=== PATIENT | male | born 2000 | race Caucasian/White ===

== ENCOUNTER 2020-09-20 23:06 | Inpatient (IN) ==
[2020-09-20 23:47] LABS: Bilirubin,Urine Negative (Negative); Blood,Urine Negative (Negative); Clarity,Urine Clear (Clear); Color,Urine Yellow (Yellow); Glucose,Urine (UA) Normal (Normal); Ketones,Urine Negative (Negative); Leukocyte Esterase,Urine Negative (Negative); Nitrite,Urine Negative (Negative); PH,Urine 6.5 pH Units (5.0-8.0); Protein,Urine Trace mg/dL (Neg-Trace); Specific Gravity,Urine > 1.030 (1.010-1.025); Urobilinogen,Urine Normal (Normal)
[2020-09-20 23:47] LABS: Basophils % 0.5 %; Eosinophils # 0.1 K/mcL (0.0-0.6); Eosinophils % 0.7 %; Hematocrit 43.8 % (37.5-50.1); Hemoglobin 14.4 g/dL (12.9-16.9); Immature Granulocytes % 0.7 % (0-4); Lymphocytes # 2.3 K/mcL (0.6-4.6); Lymphocytes % 25.9 %; Mean Corpuscular HGB Conc 32.9 g/dL (31.6-35.5); Mean Corpuscular Hemoglobin 27.1 pg (28.0-33.3); Mean Corpuscular Volume 82.3 fL (83.0-100.0); Mean Platelet Volume 10.4 fL (9.4-12.4); Monocytes # 0.8 K/mcL (0.0-1.3); Monocytes % 9.1 %; Neutrophils # 5.6 K/mcL (1.6-8.9); Platelet Count 213 K/mcL (140-400); Red Blood Count 5.32 M/mcL (4.19-5.50); Red Cell Distribution Width 13.4 % (11.5-14.5); Segmented Neutrophils % 63.1 %; White Blood Count 8.9 K/mcL (4.3-11.1)
[2020-09-20 23:56] LABS: Amphetamine Screen,Urine Negative ng/mL (Cutoff=1000); Barbiturate Screen,Urine Negative ng/mL (Cutoff=200); Benzodiazepines Screen,Urine Negative ng/mL (Cutoff=200); Cannabinoid Screen,Urine Negative ng/mL (Cutoff = 50); Cocaine Screen,Urine Negative ng/mL (Cutoff= 300); Opiate Screen,Urine Negative ng/mL (Cutoff=300); Phencyclidine Screen,Urine Negative ng/mL (Cutoff=25)
[2020-09-21 00:08] LABS: Acetaminophen < 10 mcg/mL (10-20); BUN/Creatinine Ratio 23 (6-26); Blood Urea Nitrogen 17 mg/dL (6-20); Carbon Dioxide 28 mEq/L (23-29); Chloride 105 mEq/L (98-107); Cholesterol 126 mg/dL (< 200); Ethanol < 10 mg/dL (Less than 10); Glucose 107 mg/dL (70-105); HDL Cholesterol 42 mg/dL (40-59); LDL Cholesterol,Calculated 55 mg/dL (< 100); Osmolality,Calculated 292 (280-300); Potassium 3.5 mEq/L (3.5-5.1); Salicylate < 2.5 mg/dL (15.0-30.0); Sodium 140 mEq/L (136-145); Triglycerides 143 mg/dL (< 150); eGFR For African Americans > 60 (> 60); eGFR For Non-African Americans > 60 (> 60)
[2020-09-21] MEDS ORDERED: Acetaminophen 325 MG TABLET PO PRN (01:07)
[2020-09-21] MEDS ORDERED: Mag Hydrox/Al Hydrox/Simeth 30 ML UDC PO PRN (01:07)
[2020-09-21] MEDS ORDERED: *HR* LORazepam 2 MG/ML VIAL IM PRN (01:07)
[2020-09-21] MEDS ORDERED: haloperidoL 5 MG TABLET PO PRN (01:07)
[2020-09-21] MEDS ORDERED: MOM Conc 10 ML UD.LIQ PO PRN (01:07)
[2020-09-21] MEDS ORDERED: Nicotine 2 MG GUM BC PRN (01:07)
[2020-09-21] MEDS ORDERED: *HR* LORazepam 1 MG TABLET PO PRN (01:07)
[2020-09-21] MEDS ORDERED: Haloperidol Lactate 5 MG/ML VIAL IM PRN (01:07)
[2020-09-21 08:00] LABS: Estimated Average Glucose 108 mg/dl
[2020-09-21] MEDS: Doxycycline 100 MG CAPSULE PO SCH (09:02)
[2020-09-21] MEDS: hydrOXYzine pamoate 25 MG CAPSULE PO PRN (20:45)
[2020-09-21] MEDS: QUEtiapine Fumarate 25 MG TABLET PO PRN (20:45)
[2020-09-22] MEDS: Doxycycline 100 MG CAPSULE PO SCH (08:45)
[2020-09-22] MEDS: QUEtiapine Fumarate 25 MG TABLET PO PRN (23:04)
[2020-09-23] MEDS: Doxycycline 100 MG CAPSULE PO SCH (09:16)
[2020-09-23] MEDS: QUEtiapine Fumarate 100 MG TABLET PO SCH (20:19)
[2020-09-24] MEDS: Doxycycline 100 MG CAPSULE PO SCH (09:12)
[2020-09-24] MEDS: hydrOXYzine pamoate 25 MG CAPSULE PO PRN (20:11)
[2020-09-24] MEDS: QUEtiapine Fumarate 100 MG TABLET PO SCH (20:11)
[2020-09-25 07:47] VITALS: BP 127/77
[2020-09-25] MEDS: Doxycycline 100 MG CAPSULE PO SCH (07:51)
== END 2020-09-25 17:20 | disposition home or self-care (01) | DRG 885 ==
LOC: EMEROOARM 23:06 → 1ANU 09-21 01:06
PROVIDERS: ADMIT Psychiatry & Neurology Forensic Psychiatry; ATTEND Psychiatry & Neurology Forensic Psychiatry

== ENCOUNTER 2020-11-29 14:38 | Inpatient (IN) ==
[2020-11-29] MEDS ORDERED: *HR* LORazepam 2 MG/ML VIAL IVP ONE ×2 (15:08→16:13)
[2020-11-29 16:00] LABS: Bilirubin,Urine Negative (Negative); Blood,Urine Negative (Negative); Clarity,Urine Clear (Clear); Color,Urine Light-Yellow (Yellow); Glucose,Urine (UA) Normal (Normal); Ketones,Urine Negative (Negative); Leukocyte Esterase,Urine Negative (Negative); Nitrite,Urine Negative (Negative); PH,Urine 6.5 pH Units (5.0-8.0); Protein,Urine Negative (Neg-Trace); Specific Gravity,Urine 1.022 (1.010-1.025); Urobilinogen,Urine Normal (Normal)
[2020-11-29 16:03] LABS: Basophils # 0.1 K/mcL (0.0-0.2); Basophils % 0.9 %; Eosinophils # 0.1 K/mcL (0.0-0.6); Eosinophils % 1.5 %; Hematocrit 46.8 % (37.5-50.1); Hemoglobin 15.7 g/dL (12.9-16.9); Immature Granulocytes % 0.6 % (0-4); Lymphocytes # 1.7 K/mcL (0.6-4.6); Lymphocytes % 25.9 %; Mean Corpuscular HGB Conc 33.5 g/dL (31.6-35.5); Mean Corpuscular Hemoglobin 26.8 pg (28.0-33.3); Mean Corpuscular Volume 79.9 fL (83.0-100.0); Mean Platelet Volume 9.6 fL (9.4-12.4); Monocytes # 0.5 K/mcL (0.0-1.3); Neutrophils # 4.1 K/mcL (1.6-8.9); Platelet Count 238 K/mcL (140-400); Red Blood Count 5.86 M/mcL (4.19-5.50); Red Cell Distribution Width 12.7 % (11.5-14.5); Segmented Neutrophils % 63.1 %; White Blood Count 6.5 K/mcL (4.3-11.1)
[2020-11-29 16:08] LABS: Amphetamine Screen,Urine Negative ng/mL (Cutoff=1000); Barbiturate Screen,Urine Negative ng/mL (Cutoff=200); Benzodiazepines Screen,Urine Negative ng/mL (Cutoff=200); Cannabinoid Screen,Urine Negative ng/mL (Cutoff = 50); Cocaine Screen,Urine Negative ng/mL (Cutoff= 300); Opiate Screen,Urine Negative ng/mL (Cutoff=300); Phencyclidine Screen,Urine Negative ng/mL (Cutoff=25)
[2020-11-29 16:21] LABS: BUN/Creatinine Ratio 16 (6-26); Blood Urea Nitrogen 12 mg/dL (6-20); Calcium 9.7 mg/dL (8.6-10.3); Carbon Dioxide 24 mEq/L (23-29); Chloride 106 mEq/L (98-107); Glucose 84 mg/dL (70-105); Magnesium 1.9 mg/dL (1.6-2.6); Osmolality,Calculated 289 (280-300); Potassium 3.7 mEq/L (3.5-5.1); Sodium 140 mEq/L (136-145); eGFR For African Americans > 60 (> 60); eGFR For Non-African Americans > 60 (> 60)
[2020-11-29] MEDS ORDERED: levETIRAcetam 1,000 MG in 0.9 % Sodium Chloride 100 ML IVPB STA (16:21)
[2020-11-29] MEDS ORDERED: *HR* HYDROcodone/Acet 5/325 mg TABLET PO PRN (17:55)
[2020-11-29] MEDS ORDERED: Naloxone 0.4 MG/ML INJ IVP PRN (17:55)
[2020-11-29] MEDS ORDERED: *HR* OxyCODONE Immed Rel 5 MG TABLET PO PRN (17:55)
[2020-11-29] MEDS ORDERED: Sennosides/Docusate Sodium TABLET PO PRN (17:59)
[2020-11-29] MEDS ORDERED: Saline Nasal Spray 44 ML BOTTLE NS PRN (17:59)
[2020-11-29] MEDS ORDERED: Melatonin 3 MG TABLET PO PRN (17:59)
[2020-11-29] MEDS ORDERED: hydrOXYzine pamoate 25 MG CAPSULE PO PRN (18:00)
[2020-11-29] MEDS ORDERED: *HR* LORazepam 2 MG/ML VIAL IVP PRN (18:00)
[2020-11-29] MEDS ORDERED: Ipratropium/Albuterol Neb 3 ML IH PRN (18:02)
[2020-11-29 18:42] LABS: Folate 15.9 ng/mL (3.0-16.0)
[2020-11-29 19:10] LABS: Thyroid Stimulating Hormone 1.803 mcIU/mL (0.340-5.600)
[2020-11-29 19:23] LABS: Salicylate < 2.5 mg/dL (15.0-30.0)
[2020-11-29 19:41] LABS: Acetaminophen < 10 mcg/mL (10-20); Ethanol < 10 mg/dL (Less than 10)
[2020-11-29] MEDS: Acetaminophen 325 MG TABLET PO PRN (20:45)
[2020-11-29] MEDS ORDERED: QUEtiapine Fumarate 100 MG TABLET PO SCH (21:00)
[2020-11-30 05:44] LABS: Basophils # 0.1 K/mcL (0.0-0.2); Basophils % 0.9 %; Eosinophils # 0.1 K/mcL (0.0-0.6); Hematocrit 46.3 % (37.5-50.1); Hemoglobin 15.5 g/dL (12.9-16.9); Immature Granulocytes % 1.1 % (0-4); Lymphocytes # 1.7 K/mcL (0.6-4.6); Lymphocytes % 31.1 %; Mean Corpuscular HGB Conc 33.5 g/dL (31.6-35.5); Mean Corpuscular Hemoglobin 27.1 pg (28.0-33.3); Mean Corpuscular Volume 81.1 fL (83.0-100.0); Mean Platelet Volume 9.9 fL (9.4-12.4); Monocytes # 0.6 K/mcL (0.0-1.3); Monocytes % 10.9 %; Neutrophils # 2.9 K/mcL (1.6-8.9); Platelet Count 205 K/mcL (140-400); Red Blood Count 5.71 M/mcL (4.19-5.50); Red Cell Distribution Width 12.8 % (11.5-14.5); White Blood Count 5.4 K/mcL (4.3-11.1)
[2020-11-30 05:47] LABS: INR 1.2; Prothrombin Time 13.5 Seconds (9.4-12.1)
[2020-11-30 05:48] LABS: Activated Partial Thrombo Time 29.1 Seconds (26.0-36.0)
[2020-11-30] MEDS: *HR* Enoxaparin 40 MG/0.4 ML SYRINGE SQ SCH (05:54)
[2020-11-30] MEDS ORDERED: levETIRAcetam 250 MG TABLET PO SCH (06:00)
[2020-11-30 06:03] LABS: Alanine Aminotransferase 16 Units/L (7-52); Albumin 4.4 g/dL (3.5-5.7); Alkaline Phosphatase 71 Units/L (34-104); Aspartate Amino Transferase 17 Units/L (13-39); BUN/Creatinine Ratio 17 (6-26); Bilirubin,Total 0.8 mg/dL (0.3-1.0); Blood Urea Nitrogen 14 mg/dL (6-20); Calcium 9.2 mg/dL (8.6-10.3); Carbon Dioxide 26 mEq/L (23-29); Chloride 104 mEq/L (98-107); Globulin 2.2 g/dL (2.4-3.5); Glucose 92 mg/dL (70-105); Magnesium 1.9 mg/dL (1.6-2.6); Osmolality,Calculated 286 (280-300); Potassium 3.7 mEq/L (3.5-5.1); Sodium 138 mEq/L (136-145); Total Protein 6.6 g/dL (6.4-8.9); eGFR For African Americans > 60 (> 60); eGFR For Non-African Americans > 60 (> 60)
[2020-11-30] MEDS: Nicotine 14 MG PATCH.TD24 TD SCH (08:18)
[2020-11-30] MEDS ORDERED: Sennosides 8.6 MG TABLET PO ONE (09:22)
[2020-11-30] MEDS: Ondansetron 4 MG/2 ML VIAL IVP PRN (11:04)
[2020-11-30] MEDS ORDERED: Ondansetron ODT 4 MG TAB.RAPDIS SL ONE (11:20)
[2020-11-30] MEDS ORDERED: Ondansetron ODT 4 MG TAB.RAPDIS SL PRN (11:21)
[2020-11-30] MEDS ORDERED: Gadolinium Contrast Agent (WT Based) IV PRN (11:36)
[2020-11-30 13:05] LABS: Bilirubin,Urine Negative (Negative); Blood,Urine Negative (Negative); Clarity,Urine Clear (Clear); Color,Urine Yellow (Yellow); Glucose,Urine (UA) Normal (Normal); Ketones,Urine Negative (Negative); Leukocyte Esterase,Urine Negative (Negative); Mucus,Urine Many per lpf (None-Few); Nitrite,Urine Negative (Negative); Protein,Urine 30 mg/dL (Neg-Trace); RBC,Urine 0-3 per hpf (0-3); Specific Gravity,Urine > 1.030 (1.010-1.025); Squamous Epithelial Cell,Urine Few per hpf (None-Few); Urobilinogen,Urine Normal (Normal); WBC,Urine 0-3 per hpf (0-3)
[2020-11-30] MEDS ORDERED: *HR* Promethazine 25 MG/ML VIAL IM ONE (13:23)
[2020-11-30] MEDS ORDERED: *HR* LORazepam 2 MG/ML VIAL IVP PRN (14:50)
[2020-11-30] MEDS ORDERED: *HR* OxyCODONE Immed Rel 5 MG TABLET PO PRN (14:51)
[2020-11-30] MEDS: cefTRIAXone 1,000 MG in Water for inj. (sterile) 10 ML IVP SCH (15:13)
[2020-11-30] MEDS: chlorproMAZINE 25 MG TABLET PO SCH (17:46)
[2020-11-30] MEDS: levETIRAcetam 250 MG TABLET PO SCH (17:46)
[2020-11-30] MEDS: QUEtiapine Fumarate 25 MG TABLET PO SCH (20:29)
[2020-12-01 00:59] LABS: Basophils # 0.1 K/mcL (0.0-0.2); Basophils % 0.8 %; Eosinophils # 0.2 K/mcL (0.0-0.6); Hematocrit 45.4 % (37.5-50.1); Hemoglobin 15.4 g/dL (12.9-16.9); Immature Granulocytes % 1.4 % (0-4); Lymphocytes % 24.6 %; Mean Corpuscular HGB Conc 33.9 g/dL (31.6-35.5); Mean Corpuscular Hemoglobin 26.6 pg (28.0-33.3); Mean Corpuscular Volume 78.5 fL (83.0-100.0); Mean Platelet Volume 10.5 fL (9.4-12.4); Monocytes # 0.8 K/mcL (0.0-1.3); Monocytes % 9.4 %; Neutrophils # 4.9 K/mcL (1.6-8.9); Platelet Count 217 K/mcL (140-400); Red Blood Count 5.78 M/mcL (4.19-5.50); Red Cell Distribution Width 12.9 % (11.5-14.5); Segmented Neutrophils % 61.8 %
[2020-12-01] MEDS: levETIRAcetam 250 MG TABLET PO SCH ×2 (05:27→18:06)
[2020-12-01] MEDS: *HR* Enoxaparin 40 MG/0.4 ML SYRINGE SQ SCH (05:28)
[2020-12-01] MEDS: chlorproMAZINE 25 MG TABLET PO SCH ×2 (07:44→18:05)
[2020-12-01] MEDS: Nicotine 14 MG PATCH.TD24 TD SCH (07:45)
[2020-12-01] MEDS: cefTRIAXone 1,000 MG in Water for inj. (sterile) 10 ML IVP SCH (07:46)
[2020-12-01] MEDS ORDERED: ATOMOXETINE HCL 25 MG PO SCH (09:00)
[2020-12-01] MEDS: Divalproex (24 HR) 500 MG TABLET PO SCH (20:13)
[2020-12-01] MEDS: QUEtiapine Fumarate 25 MG TABLET PO SCH (20:13)
[2020-12-02] MEDS: levETIRAcetam 250 MG TABLET PO SCH ×2 (06:44→16:33)
[2020-12-02] MEDS: *HR* Enoxaparin 40 MG/0.4 ML SYRINGE SQ SCH (06:47)
[2020-12-02] MEDS: Nicotine 14 MG PATCH.TD24 TD SCH (08:07)
[2020-12-02] MEDS: chlorproMAZINE 25 MG TABLET PO SCH ×2 (08:07→16:33)
[2020-12-02] MEDS: cefTRIAXone 1,000 MG in Water for inj. (sterile) 10 ML IVP SCH (08:12)
[2020-12-02] MEDS: Ondansetron 4 MG/2 ML VIAL IVP PRN (10:31)
[2020-12-02] MEDS: QUEtiapine Fumarate 25 MG TABLET PO SCH (20:25)
[2020-12-02] MEDS: Divalproex (24 HR) 500 MG TABLET PO SCH (20:26)
[2020-12-03] MEDS: *HR* Enoxaparin 40 MG/0.4 ML SYRINGE SQ SCH (05:33)
[2020-12-03] MEDS: levETIRAcetam 250 MG TABLET PO SCH ×2 (05:33→16:40)
[2020-12-03] MEDS: chlorproMAZINE 25 MG TABLET PO SCH ×2 (09:16→16:40)
[2020-12-03] MEDS: Nicotine 14 MG PATCH.TD24 TD SCH (09:16)
[2020-12-03] MEDS: Acetaminophen 325 MG TABLET PO PRN (11:29)
[2020-12-03] MEDS: Ondansetron 4 MG/2 ML VIAL IVP PRN (16:35)
[2020-12-03] MEDS: QUEtiapine Fumarate 25 MG TABLET PO SCH (19:54)
[2020-12-03] MEDS: Divalproex (24 HR) 500 MG TABLET PO SCH (19:54)
[2020-12-04] MEDS: *HR* Enoxaparin 40 MG/0.4 ML SYRINGE SQ SCH (05:27)
[2020-12-04] MEDS: levETIRAcetam 250 MG TABLET PO SCH ×2 (09:00→17:26)
[2020-12-04] MEDS: Nicotine 14 MG PATCH.TD24 TD SCH (09:06)
[2020-12-04] MEDS: chlorproMAZINE 25 MG TABLET PO SCH ×2 (09:07→17:26)
[2020-12-04] MEDS: Divalproex (24 HR) 500 MG TABLET PO SCH (19:46)
[2020-12-04] MEDS: QUEtiapine Fumarate 25 MG TABLET PO SCH (19:46)
[2020-12-05] MEDS: *HR* Enoxaparin 40 MG/0.4 ML SYRINGE SQ SCH (05:01)
[2020-12-05] MEDS: levETIRAcetam 250 MG TABLET PO SCH ×2 (05:02→17:51)
[2020-12-05] MEDS: chlorproMAZINE 25 MG TABLET PO SCH ×2 (08:36→17:50)
[2020-12-05] MEDS: Nicotine 14 MG PATCH.TD24 TD SCH (08:37)
[2020-12-05] MEDS: Ondansetron 4 MG/2 ML VIAL IVP PRN (14:09)
[2020-12-05] MEDS: Divalproex (24 HR) 500 MG TABLET PO SCH (21:47)
[2020-12-05] MEDS: QUEtiapine Fumarate 25 MG TABLET PO SCH (21:47)
[2020-12-06] MEDS: *HR* Enoxaparin 40 MG/0.4 ML SYRINGE SQ SCH (05:30)
[2020-12-06] MEDS: levETIRAcetam 250 MG TABLET PO SCH ×2 (05:43→17:53)
[2020-12-06 06:05] LABS: Hematocrit 48.6 % (37.5-50.1); Hemoglobin 16.1 g/dL (12.9-16.9); Mean Corpuscular HGB Conc 33.1 g/dL (31.6-35.5); Mean Corpuscular Hemoglobin 26.6 pg (28.0-33.3); Mean Corpuscular Volume 80.2 fL (83.0-100.0); Mean Platelet Volume 9.3 fL (9.4-12.4); Platelet Count 222 K/mcL (140-400); Red Blood Count 6.06 M/mcL (4.19-5.50); Red Cell Distribution Width 12.6 % (11.5-14.5); White Blood Count 5.4 K/mcL (4.3-11.1)
[2020-12-06 06:21] LABS: BUN/Creatinine Ratio 15 (6-26); Blood Urea Nitrogen 12 mg/dL (6-20); Calcium 9.4 mg/dL (8.6-10.3); Carbon Dioxide 27 mEq/L (23-29); Chloride 103 mEq/L (98-107); Glucose 80 mg/dL (70-105); Osmolality,Calculated 285 (280-300); Potassium 3.9 mEq/L (3.5-5.1); Sodium 138 mEq/L (136-145); eGFR For African Americans > 60 (> 60); eGFR For Non-African Americans > 60 (> 60)
[2020-12-06] MEDS: Nicotine 14 MG PATCH.TD24 TD SCH (08:10)
[2020-12-06] MEDS: chlorproMAZINE 25 MG TABLET PO SCH ×2 (08:10→17:52)
[2020-12-06] MEDS: Acetaminophen 325 MG TABLET PO PRN (14:05)
[2020-12-06] MEDS: QUEtiapine Fumarate 25 MG TABLET PO SCH (21:05)
[2020-12-06] MEDS: Divalproex (24 HR) 500 MG TABLET PO SCH (21:05)
[2020-12-07] MEDS: *HR* Enoxaparin 40 MG/0.4 ML SYRINGE SQ SCH (05:39)
[2020-12-07] MEDS: levETIRAcetam 250 MG TABLET PO SCH (05:41)
[2020-12-07] MEDS: Nicotine 14 MG PATCH.TD24 TD SCH (07:42)
[2020-12-07] MEDS: chlorproMAZINE 25 MG TABLET PO SCH (07:42)
[2020-12-07 11:12] VITALS: BP 107/62
[2020-12-07] MEDS: Ondansetron 4 MG/2 ML VIAL IVP PRN (11:17)
== END 2020-12-07 14:55 | disposition other institution (70) | DRG 101 ==
LOC: SUATTDRO → EMEROOARM 14:38 → 3BNU 14:38 → SUATTDRO 19:15 → 3BNU 19:51 → SUATTDRO 11-30 16:45 → 3BNU 12-01 21:05
PROVIDERS: ADMIT Internal Medicine; ATTEND Internal Medicine

== ENCOUNTER 2022-04-02 23:02 | Inpatient (IN) ==
[2022-04-02 23:39] LABS: Bacteria,Urine Few per hpf (None-Few); Bilirubin,Urine Negative (Negative); Blood,Urine Negative (Negative); Clarity,Urine Turbid (Clear); Color,Urine Yellow (Yellow); Glucose,Urine (UA) Normal (Normal); Hyaline Casts,Urine Few per lpf (None Seen); Ketones,Urine Negative (Negative); Leukocyte Esterase,Urine Negative (Negative); Mucus,Urine Many per lpf (None-Few); Nitrite,Urine Negative (Negative); Protein,Urine 30 mg/dL (Neg-Trace); RBC,Urine 0-3 per hpf (0-3); Specific Gravity,Urine 1.027 (1.010-1.025)
[2022-04-02 23:41] LABS: Basophils % 0.6 %; Eosinophils # 0.1 K/mcL (0.0-0.6); Eosinophils % 1.3 %; Hemoglobin 16.1 g/dL (12.9-16.9); Immature Granulocytes % 0.4 % (0-4); Lymphocytes # 1.8 K/mcL (0.6-4.6); Lymphocytes % 33.8 %; Mean Corpuscular HGB Conc 33.5 g/dL (31.6-35.5); Mean Corpuscular Hemoglobin 26.7 pg (28.0-33.3); Mean Corpuscular Volume 79.7 fL (83.0-100.0); Mean Platelet Volume 10.1 fL (9.4-12.4); Monocytes # 0.4 K/mcL (0.0-1.3); Monocytes % 7.1 %; Neutrophils # 3.1 K/mcL (1.6-8.9); Platelet Count 238 K/mcL (140-400); Red Blood Count 6.02 M/mcL (4.19-5.50); Red Cell Distribution Width 12.6 % (11.5-14.5); Segmented Neutrophils % 56.8 %; White Blood Count 5.4 K/mcL (4.3-11.1)
[2022-04-02 23:46] LABS: Estimated Average Glucose 88 mg/dl; Hemoglobin A1C 4.7 %
[2022-04-02 23:48] LABS: Amphetamine Screen,Urine Negative ng/mL (Cutoff=1000); Barbiturate Screen,Urine Negative ng/mL (Cutoff=200); Benzodiazepines Screen,Urine Negative ng/mL (Cutoff=200); Cannabinoid Screen,Urine Negative ng/mL (Cutoff = 50); Cocaine Screen,Urine Negative ng/mL (Cutoff= 300); Opiate Screen,Urine Negative ng/mL (Cutoff=300); Phencyclidine Screen,Urine Negative ng/mL (Cutoff=25)
[2022-04-02 23:59] LABS: Acetaminophen < 10 mcg/mL (10-20); Alanine Aminotransferase 10 Units/L (7-52); Albumin/Globulin Ratio 1.9 (1.1-2.2); Alkaline Phosphatase 60 Units/L (34-104); Aspartate Amino Transferase 13 Units/L (13-39); BUN/Creatinine Ratio 11 (6-26); Bilirubin,Direct 0.1 mg/dL (0.0-0.2); Bilirubin,Indirect 0.4 mg/dL (0.0-1.0); Bilirubin,Total 0.5 mg/dL (0.3-1.0); Blood Urea Nitrogen 10 mg/dL (6-20); Calcium 9.1 mg/dL (8.6-10.3); Carbon Dioxide 30 mEq/L (23-29); Chloride 102 mEq/L (98-107); Chol/HDL Ratio 3.4 (0-4.9); Cholesterol 165 mg/dL (< 200); Ethanol < 10 mg/dL (Less than 10); Globulin 2.7 g/dL (2.4-3.5); Glucose 90 mg/dL (70-105); HDL Cholesterol 48 mg/dL (40-59); LDL Cholesterol,Calculated 95 mg/dL (< 100); Osmolality,Calculated 287 (280-300); Potassium 3.3 mEq/L (3.5-5.1); Salicylate < 2.5 mg/dL (15.0-30.0); Sodium 139 mEq/L (136-145); Total Protein 7.7 g/dL (6.4-8.9); Triglycerides 108 mg/dL (< 150); eGFR For African Americans > 60 (> 60); eGFR For Non-African Americans > 60 (> 60)
[2022-04-03 03:25] LABS: Influenza A PCR Negative (Negative); Influenza B PCR Negative (Negative); Resp. Syncytial Virus PCR Negative (Negative)
[2022-04-03 03:27] LABS: SARS-CoV-2 by PCR (In House) Negative (Negative)
[2022-04-03] MEDS ORDERED: haloperidoL 5 MG TABLET PO PRN (03:43)
[2022-04-03] MEDS ORDERED: QUEtiapine Fumarate 25 MG TABLET PO PRN (03:43)
[2022-04-03] MEDS ORDERED: Acetaminophen 325 MG TABLET PO PRN (03:43)
[2022-04-03] MEDS ORDERED: *HR* LORazepam 1 MG TABLET PO PRN (03:43)
[2022-04-03] MEDS ORDERED: Haloperidol Lactate 5 MG/ML VIAL IM PRN (03:43)
[2022-04-03] MEDS ORDERED: *HR* LORazepam 2 MG/ML VIAL IM PRN (03:43)
[2022-04-03] MEDS ORDERED: Ondansetron ODT 4 MG TAB.RAPDIS SL ONE (12:42)
[2022-04-03] MEDS: ARIPiprazole 5 MG TABLET PO SCH (20:43)
[2022-04-03] MEDS: Divalproex (12 HR) 500 MG TABLET PO SCH (20:43)
[2022-04-04] MEDS: hydrOXYzine pamoate 25 MG CAPSULE PO PRN (04:31)
[2022-04-04] MEDS: Divalproex (12 HR) 500 MG TABLET PO SCH ×2 (08:29→22:07)
[2022-04-04] MEDS: ARIPiprazole 5 MG TABLET PO SCH (22:07)
[2022-04-04] MEDS: QUEtiapine Fumarate 25 MG TABLET PO SCH (22:07)
[2022-04-05] MEDS: Divalproex (12 HR) 500 MG TABLET PO SCH (09:30)
[2022-04-05] MEDS: levETIRAcetam 250 MG TABLET PO SCH (18:22)
[2022-04-05] MEDS: Divalproex (12 HR) 250 MG TABLET PO SCH (21:25)
[2022-04-05] MEDS: ARIPiprazole 5 MG TABLET PO SCH (21:25)
[2022-04-05] MEDS: QUEtiapine Fumarate 25 MG TABLET PO SCH (21:25)
[2022-04-06] MEDS: Divalproex (12 HR) 250 MG TABLET PO SCH ×2 (10:11→21:28)
[2022-04-06] MEDS: levETIRAcetam 250 MG TABLET PO SCH ×3 (10:27→21:28)
[2022-04-06] MEDS: ARIPiprazole 5 MG TABLET PO SCH (21:28)
[2022-04-06] MEDS: QUEtiapine Fumarate 25 MG TABLET PO SCH (21:29)
[2022-04-07] MEDS: Divalproex (12 HR) 250 MG TABLET PO SCH ×2 (09:08→20:57)
[2022-04-07] MEDS: levETIRAcetam 250 MG TABLET PO SCH ×2 (09:08→20:57)
[2022-04-07] MEDS: hydrOXYzine pamoate 25 MG CAPSULE PO PRN (09:37)
[2022-04-07] MEDS: QUEtiapine Fumarate 25 MG TABLET PO SCH (20:56)
[2022-04-07] MEDS: ARIPiprazole 5 MG TABLET PO SCH (20:57)
[2022-04-08] MEDS: levETIRAcetam 250 MG TABLET PO SCH ×2 (09:13→20:26)
[2022-04-08] MEDS: Divalproex (12 HR) 250 MG TABLET PO SCH ×2 (09:13→20:26)
[2022-04-08] MEDS: hydrOXYzine pamoate 25 MG CAPSULE PO PRN (17:35)
[2022-04-08] MEDS: ARIPiprazole 5 MG TABLET PO SCH (20:26)
[2022-04-08] MEDS: QUEtiapine Fumarate 25 MG TABLET PO SCH (20:26)
[2022-04-09] MEDS: hydrOXYzine pamoate 25 MG CAPSULE PO PRN (04:07)
[2022-04-09] MEDS: levETIRAcetam 250 MG TABLET PO SCH ×2 (09:38→20:35)
[2022-04-09] MEDS: Divalproex (12 HR) 250 MG TABLET PO SCH ×2 (09:38→20:34)
[2022-04-09] MEDS: QUEtiapine Fumarate 25 MG TABLET PO SCH (20:34)
[2022-04-09] MEDS: ARIPiprazole 5 MG TABLET PO SCH (20:34)
[2022-04-10] MEDS: levETIRAcetam 250 MG TABLET PO SCH ×2 (08:50→20:19)
[2022-04-10] MEDS: Divalproex (12 HR) 250 MG TABLET PO SCH ×2 (08:50→20:19)
[2022-04-10 09:14] VITALS: O2SAT 98
[2022-04-10] MEDS: hydrOXYzine pamoate 25 MG CAPSULE PO PRN (16:21)
[2022-04-10] MEDS: ARIPiprazole 5 MG TABLET PO SCH (20:19)
[2022-04-10] MEDS: QUEtiapine Fumarate 25 MG TABLET PO SCH (20:19)
[2022-04-11] MEDS: hydrOXYzine pamoate 25 MG CAPSULE PO PRN (04:46)
[2022-04-11] MEDS: levETIRAcetam 250 MG TABLET PO SCH (08:47)
[2022-04-11] MEDS: Divalproex (12 HR) 250 MG TABLET PO SCH (08:47)
[2022-04-11 10:10] VITALS: BP 142/90; PULSE 69; TEMP 97.7
== END 2022-04-11 19:35 | disposition home or self-care (01) | DRG 884 ==
LOC: EMEROOARM 23:02 → SUATTDRO 04-03 03:40 → 1ANU 04-03 03:40
PROVIDERS: ADMIT Psychiatry & Neurology Neurology; ATTEND Psychiatry & Neurology Forensic Psychiatry